=== PATIENT | female | born 1985 | race Caucasian/White ===

== ENCOUNTER 2019-02-13 16:15 | Emergency (ER) | payer OTHER ==
[~2019-02-13] VITALS: Ht 175.3 cm; Wt 90.7 kg
[~2019-02-13 16:15] MED LIST: BACTRIM DS TAB1 EACH PO; CENTRUM SILVER1 EAC4 PO; CYMBALTA30 MG PO; FIORICET 50-321 EACH; IBUPROFEN 600600 M1 PO; MEDROXYPROGESTERONE; NORCO 5-325 TA1 EACH PO; PHENERGAN 25 MG25 M1 PO; PHENERGAN 25 MG25 MG PO; PROZAC40 MG PO; TENEX2 MG PO; VALTREX; XANAX 0.5 MG0.5 M1 PO; ZOFRAN ODT4 MG PO; ZOLOFT; ZOLOFT 50 MG TA50 M1 PO; ZYRTEC10 M2 PO
[2019-02-13 16:21] VITALS: BP 128/70
[2019-02-13] MEDS ORDERED: VYVANSE60 MG PO (16:30)
[2019-02-13] MEDS ORDERED: ADDERALL 10 MG10 MG PO (16:30)
[2019-02-13] MEDS ORDERED: PROZAC20 MG PO (16:30)
== END 2019-02-13 17:23 | disposition home or self-care (01) ==
LOC: ER 16:15
DX: H69.92 Unspecified Eustachian tube disorder, left ear (principal); Z90.49 Acquired absence of other specified parts of digestive tract; Z88.0 Allergy status to penicillin; Z88.1 Allergy status to other antibiotic agents